=== PATIENT | female | born 1955 | race Caucasian/White ===

== ENCOUNTER 2019-10-22 08:52 | Outpatient (CLI) | payer OTHER, SELFPAY | END 2019-10-22 08:53 | disposition home or self-care (01) | LOC: ANHCOVIDDT 08:53 | PROVIDERS: PCP Family Medicine; Visit Provider Internal Medicine Gastroenterology | DX: Z01.818 Encounter for other preprocedural examination (principal); Z11.59 Encounter for screening for other viral diseases; Z53.8 Procedure and treatment not carried out for other reasons | CPT/HCPCS: 87635; U0003 ==

== ENCOUNTER 2019-11-13 00:21 | Outpatient (CLI) | payer OTHER, SELFPAY ==
[2019-11-13 18:58] LABS: SARS-CoV-2 RNA PCR Negative
== END 2019-11-13 00:22 | disposition home or self-care (01) ==
LOC: ANHCOVIDDT 00:21
PROVIDERS: PCP Family Medicine; Visit Provider Internal Medicine Gastroenterology
DX: Z01.818 Encounter for other preprocedural examination (principal); Z11.59 Encounter for screening for other viral diseases
CPT/HCPCS: 87635; C9803; U0003

== ENCOUNTER 2019-11-15 00:21 | Day surgery (SDC) | payer OTHER, SELFPAY ==
[2019-10-22 13:14] VITALS: BMI 21.3
--- NOTE | 2019-11-05 14:05 | PC.NURSE ---
Pt was interviewd 10/22/2019. Pt states no changes to health history. Preop instructions reviewed with patient in regards to day of procedure and covid testing. Pt verbalized understanding.
[2019-11-15 07:30] VITALS: BP 124/94; PULSE 92; RESP 14; TEMP 36.8; O2SAT 99
[2019-11-15 07:32] VITALS: BMI 21.1
--- NOTE | 2019-11-15 07:32 | WPDANESEPPF ---
Anes - Initial Pre Proc Eval Procedure: Operation Date: 11/15/19 08:00 Proposed Procedures p Esophagogastroduodenoscopy - Woody Nickerson DO Date/Time: 11/15/19 07:32 Surgeon: Woody Nickerson DO Pre Op Diagnosis: PUD Patient Data Age: 64 Gender: F Height: 5 ft 6 in Weight: 60 kg Last Vital Signs Temp 98.2 F 11/15/19 07:30 Pulse 92 11/15/19 07:30 Resp 14 11/15/19 07:30 BP 124/94 H 11/15/19 07:30 Pulse Ox 99 11/15/19 07:30 Allergies Allergy/AdvReac Type Severity Reaction Status Date / Time streptomycin Allergy Intermediate Swelling Verified 11/15/19 07:28 Sulfa (Sulfonamide Allergy Intermediate Swelling Verified 11/15/19 07:28 Antibiotics) Home Medications Medication Instructions Recorded Confirmed Type bupropion HCl 300 mg PO DAILY 05/15/19 11/15/19 History gabapentin 600 mg PO DAILY 05/15/19 11/15/19 History nicotine 21 mg TRANSDERMAL Q12-24H 05/15/19 11/15/19 History omeprazole 40 mg PO DAILY 05/15/19 11/15/19 History trazodone 300 mg PO DAILY 05/15/19 11/15/19 History gh-aue-pmxdj-calcium carb-K1 1 tablet PO DAILY 10/22/19 11/15/19 History [Women's 50 Plus Multivitamin] Patient hx anesthesia problems: none Family hx anesthesia problems: none PMFSH Past Medical History Medical History (Updated 11/15/19 @ 07:26 by Woody Nickerson DO) Anxiety and depression AVM (arteriovenous malformation) of duodenum, acquired Ginny esophagitis Chronic hepatitis C Esophageal stricture Hx of adenomatous colonic polyps Osteoporosis PUD (peptic ulcer disease) Vitamin B12 deficiency Vitamin D deficiency Surgical History Surgical History (Updated 05/17/19 @ 08:27 by Fouzia Hunter APRN) Hx of appendectomy Hx of colonoscopy Hx of esophagogastroduodenoscopy Hx of lumpectomy Family History Family History (Updated 05/17/19 @ 08:28 by Fouzia Hunter APRN) Mother Acute myocardial infarction Hypertension Father TIA (transient ischemic attack) Diabetes mellitus Parkinson disease Skin cancer Sibling Hypertension Diabetes mellitus Multiple myeloma Other Lung cancer Social History Social History (Updated 05/17/19 @ 08:29 by Fouzia Hunter, [employer]) Smoking packs per day: 0.5 Smoking cigarettes per day: 10.0 Smoking status: Current every day smoker Additional smoking assessment comments: currently using nicotine patch Alcohol intake: current Drinks per week: 15 Substance use: former Gender identity (if verbalized by the patient): Female Anes - Eval Final PreProcedure Day of Procedure 11/15/19 07:32 Patient weight: normal Heart: regular rate and rhythm Lungs: clear to auscultation Airway: Mallampati scale class II Neurological: alert and oriented Last oral intake: >/= 8 hours ASA classification: III Emergent: no Anesthetic plan: proceed Anesthesia type and monitoring: general GIVS and standard monitoring Informed Consent: The patient's anesthetic plan and its attendant risks and benefits were discussed with the patient/family/POA. Questions were solicited and answers provided to the satisfaction of the patient/family/POA.
[2019-11-15] MEDS: LACTATED RINGERS 1,000 ML 150 ML IV CONT (07:39)
--- NOTE | 2019-11-15 07:59 | PM.IMHP ---
H&P: HPI History of Present Illness Chief complaint: PUD Narrative: Reason for visit EGD. This very pleasant lady seen in consultation request the primary. The patient was examined. Impression: GERD with history of esophageal stricture. Patient is here for follow-up endoscopy to assess the need for further dilation. History of Ginny esophagitis. AVM of the duodenum. History of adenomatous colon polyps. History of chronic hepatitis-C. Recommendation: EGD. History: This very pleasant lady's being evaluated for history reflux disease and dysphagia. The patient does have a esophageal stricture. She was previously dilated. She was also noted to have a small AVM in the duodenum. She is here for follow-up endoscopy to assess the need for further dilation and for recurrent AVMs. She is presently doing well. She is having no significant breakthrough symptoms and no significant dysphagia. Lower gastrointestinal symptoms or tonight. The patient has been encouraged to quit smoking. General: very pleasant patient in no acute distress. HEENT: Head was normocephalic sclerae is clear mouth without masses neck was supple. Heart: Rate rhythm regular without S3 or S4. Lungs: CTA.Decreased breath sounds bilaterally. Abdomen: Soft with no guarding or rigidity. Bowel sounds were active. Neurologic: Cranial nerves 2 through 12 intact. No focal defects. No clonus. Musculoskeletal system: Revealed no joint tenderness or swelling no muscle atrophy. Extremities: Reveal no significant edema. Skin: Warm and dry with normal turgor. Mental status: intact. Patient is alert and oriented. Review of Systems Review of Systems: All systems reviewed & are unremarkable except as noted in HPI and below PMFSH Past Medical History Medical History (Updated 11/15/19 @ 07:26 by Woody Nickerson DO) Anxiety and depression AVM (arteriovenous malformation) of duodenum, acquired Ginny esophagitis Chronic hepatitis C Esophageal stricture Hx of adenomatous colonic polyps Osteoporosis PUD (peptic ulcer disease) Vitamin B12 deficiency Vitamin D deficiency Surgical History Surgical History (Updated 05/17/19 @ 08:27 by Fouzia Hunter APRN) Hx of appendectomy Hx of colonoscopy Hx of esophagogastroduodenoscopy Hx of lumpectomy Family History Family History (Updated 05/17/19 @ 08:28 by Fouzia Hunter APRN) Mother Acute myocardial infarction Hypertension Father TIA (transient ischemic attack) Diabetes mellitus Parkinson disease Skin cancer Sibling Hypertension Diabetes mellitus Multiple myeloma Other Lung cancer Social History Social History (Updated 05/17/19 @ 08:29 by Fouzia Hunter, GINI) Smoking packs per day: 0.5 Smoking cigarettes per day: 10.0 Smoking status: Current every day smoker Additional smoking assessment comments: currently using nicotine patch Alcohol intake: current Drinks per week: 15 Substance use: former Gender identity (if verbalized by the patient): Female Meds Home Medications and Allergies Home Medications Medication Instructions Recorded Confirmed Type bupropion HCl 300 mg PO DAILY 05/15/19 11/15/19 History gabapentin 600 mg PO DAILY 05/15/19 11/15/19 History nicotine 21 mg TRANSDERMAL Q12-24H 05/15/19 11/15/19 History omeprazole 40 mg PO DAILY 05/15/19 11/15/19 History trazodone 300 mg PO DAILY 05/15/19 11/15/19 History hy-vxf-wqkvd-calcium carb-K1 1 tablet PO DAILY 10/22/19 11/15/19 History [Women's 50 Plus Multivitamin] Allergies Allergy/AdvReac Type Severity Reaction Status Date / Time streptomycin Allergy Intermediate Swelling Verified 11/15/19 07:28 Sulfa (Sulfonamide Allergy Intermediate Swelling Verified 11/15/19 07:28 Antibiotics) Vital Signs Vital Signs - 24 hr 11/15/19 07:30 Temperature 36.8 C Pulse Rate 92 Respiratory Rate 14 Blood Pressure 124/94 H Pulse Oximetry 99
[2019-11-15 08:21] VITALS: BP 129/83; PULSE 73; RESP 20; O2SAT 98
[2019-11-15 08:31] VITALS: BP 139/84; PULSE 74; RESP 27; O2SAT 100
[2019-11-15 08:41] VITALS: BP 149/90; PULSE 72; RESP 26; O2SAT 100
== END 2019-11-15 09:24 | disposition home or self-care (01) ==
PROVIDERS: PCP Family Medicine; Visit Provider Internal Medicine Gastroenterology
PROC: 0DJ08ZZ Inspection of Upper Intestinal Tract, Via Natural or Artificial Opening Endoscopic (ICD-10-PCS; CPT 43235; principal; 2019-11-15 08:00)
DX: Z09 Encounter for follow-up examination after completed treatment for conditions other than malignant neoplasm (principal); Z87.19 Personal history of other diseases of the digestive system; K21.9 Gastro-esophageal reflux disease without esophagitis; K44.9 Diaphragmatic hernia without obstruction or gangrene; K31.819 Angiodysplasia of stomach and duodenum without bleeding; Z87.11 Personal history of peptic ulcer disease; F32.9 Major depressive disorder, single episode, unspecified; B18.2 Chronic viral hepatitis C; F17.210 Nicotine dependence, cigarettes, uncomplicated; F41.9 Anxiety disorder, unspecified; Z88.2 Allergy status to sulfonamides; Z88.8 Allergy status to other drugs, medicaments and biological substances
CPT/HCPCS: 43235; J2704; J7120

== ENCOUNTER 2019-12-24 07:13 | Outpatient (CLI) | payer OTHER, SELFPAY ==
--- NOTE | ~2019-12-24 | MM_ITS ---
EXAMINATION: MM screening [facility] BI w l[facility] HISTORY: Screening mammogram TECHNIQUE: Craniocaudal and mediolateral oblique 3-D tomosynthesis images were obtained and synthetic 2-D images were generated. CAD analysis was submitted and interpreted. COMPARISON: Comparison to multiple prior studies sequentially, with oldest reviewed study dated 11/2013. BREAST PARENCHYMAL COMPOSITION: There are scattered areas of fibroglandular density. FINDINGS: There is no evidence of suspicious mass, calcification, or architectural distortion to sugg est malignancy in either breast. There has been no suspicious interval change. IMPRESSION: 1. No mammographic evidence of malignancy. 2. Recommend routine screening mammography in one year. BI-RADS Category 1: Negative Reviewed, dictated and finalized at location A.
[2019-12-24 08:00] LABS: Basophils Absolute Auto 0.1 K/mm3 (0.0-0.1); Basophils Percent Auto 1.1 % (0.2-1.2); Eosinophils Absolute Auto 0.3 K/mm3 (0-0.3); Eosinophils Percent Auto 3.9 % (0-4.4); Hematocrit 35.1 % (37.0-47.0); Hemoglobin 12.2 g/dL (12.0-15.0); Immature Granulocyte Absolute 0.04 K/mm3 (0.00-0.031); Immature Granulocyte Percent A 0.6 % (0-0.5); Lymphocytes Absolute Auto 1.98 K/mm3 (0.9-3.2); Lymphocytes Percent Auto 30.5 % (18.3-44.2); Mean Corpuscular HGB Conc 34.8 g/dl (32-36); Mean Corpuscular Hemoglobin 34.2 pg (26-34); Mean Corpuscular Volume 98.3 fl (80-100); Mean Platelet Volume 8.2 fl (7.4-10.4); Monocytes Absolute Auto 0.8 K/mm3 (0.1-0.6); Monocytes Percent Auto 12.9 % (2.6-8.5); Neutrophils Absolute Auto 3.3 K/mm3 (1.3-6.7); Platelet Count Result 305 k/mm3 (150-375); Red Blood Count 3.57 M/mm3 (4.2-5.4); Red Cell Distribution Width 11.6 % (11.5-14.5); White Blood Count 6.5 K/mm3 (4.5-10.0)
[2019-12-24 08:10] LABS: Alanine Aminotransferase 91 U/L (4-35); Albumin Level 4.7 g/dL (3.5-5.1); Alkaline Phosphatase 85 U/L (38-126); Aspartate Amino Transferase 132 U/L (14-36); Bilirubin,Total 0.4 mg/dL (0.2-1.3); Blood Urea Nitrogen 13 mg/dL (7-17); Calcium 9.1 mg/dL (8.4-10.2); Carbon Dioxide 21 mmol/L (22-30); Chloride 95 mmol/L (98-107); Cholesterol 196 mg/dL (0-200); Estimated Glomerular Filt Rate > 60; Glucose 106 mg/dL (65-105); HDL Direct 92 mg/dL; Magnesium 1.8 mg/dL (1.6-2.3); Phosphorus 4.1 mg/dL (2.5-4.5); Potassium 4.4 mmol/L (3.4-5.0); Sodium 126 mmol/L (137-145); Triglycerides 71 mg/dL (<150)
[2019-12-24 08:11] LABS: Prothrombin Time 12.6 Seconds (11.1-14.7)
[2019-12-24 08:21] LABS: LDL Cholesterol Direct 80 mg/dL
[2019-12-27 11:15] LABS: Mitochondrial (M2) Ab (IgG) <=20.0 U (<=20.0)
[2019-12-27 19:07] LABS: Alpha-1-Antitrypsin, QN 124 mg/dL (83-199)
== END 2019-12-24 07:14 | disposition home or self-care (01) ==
PROVIDERS: PCP Family Medicine; Referring Provider Internal Medicine Gastroenterology; Visit Provider Family Medicine
DX: Z12.31 Encounter for screening mammogram for malignant neoplasm of breast (principal); B18.2 Chronic viral hepatitis C
CPT/HCPCS: 36415; 77063; 77067; 80048; 80061; 80076; 82103; 82104; 83520; 83735; 84100; 84439; 84443; 85025; 85610; 87522

== ENCOUNTER 2020-01-17 07:11 | Outpatient (CLI) | payer OTHER, SELFPAY ==
--- NOTE | ~2020-01-17 | CT_ITS ---
EXAMINATION:CT lung screening DATE: 01/17/2020 08:30 INDICATION: Personal history of tobacco dependence. Current smoker with 40 pack year history. TECHNIQUE: Computed tomography (CT) of the chest was performed without intravenous contrast. Automate d exposure control and iterative reconstruction technique were employed. The dose-length product (DLP ) was 66.53 mGy-cm. COMPARISON: Chest CT 09/06/2018 FINDINGS: There is a stable 2 mm nodule in right lung apex. A calcified left lung nodule is consisten t with old granulomatous disease. There is a 3 mm nodule in right lower lobe without change. No pleur al effusion. The heart size is normal. There are coronary artery calcifications. No pericardial effu jerod. There is a 9 mm nodule in left thyroid lobe, likely not clinically significant. There is severe cervical and thoracic spondylosis. There is a chronic compression fracture of L1. IMPRESSION: 1. Lung-RADS category 2: Benign appearance or behavior. Continue annual screening with noncontrast lo w-dose chest CT in 12 months. Reviewed, dictated and finalized at location B. IMPRESSION: 1. Lung-RADS category 2: Benign appearance or behavior. Continue annual screeni ng with noncontrast low-dose chest CT in 12 months.
[2020-01-17 08:06] LABS: Anion Gap 9 mmol/L (8-16); Blood Urea Nitrogen 14 mg/dL (7-17); Carbon Dioxide 25 mmol/L (22-30); Chloride 95 mmol/L (98-107); Estimated Glomerular Filt Rate > 60; Glucose 99 mg/dL (65-105); Sodium 129 mmol/L (137-145)
== END 2020-01-17 07:12 | disposition home or self-care (01) ==
PROVIDERS: PCP Family Medicine; Visit Provider Internal Medicine Gastroenterology
DX: B18.2 Chronic viral hepatitis C (principal)
CPT/HCPCS: 36415; 80048; G0297

== ENCOUNTER 2020-02-07 11:01 | Outpatient (CLI) | payer OTHER, SELFPAY ==
[2020-02-10 05:05] LABS: Amphetamines negative; Barbiturates negative; Benzodiazepines negative; Cocaine Metabolites negative; Marijuana Metabolites negative; PCP negative
== END 2020-02-07 11:02 | disposition home or self-care (01) ==
LOC: ANHLAB 11:04
PROVIDERS: PCP Family Medicine; Visit Provider Physician Assistant Medical
DX: B18.2 Chronic viral hepatitis C (principal)
CPT/HCPCS: 80307

== ENCOUNTER → 2020-08-04 02:33 | Outpatient (CLI) | payer OTHER, SELFPAY ==
[2020-08-04 18:21] LABS: SARS-CoV-2 RNA PCR Negative
== END ==
PROVIDERS: PCP Family Medicine; Visit Provider Internal Medicine Gastroenterology
DX: Z01.812 Encounter for preprocedural laboratory examination (principal); Z20.822 Contact with and (suspected) exposure to COVID-19
CPT/HCPCS: C9803; U0003; U0005

== ENCOUNTER 2020-08-07 01:30 | Day surgery (SDC) | payer OTHER, SELFPAY ==
[2020-07-23 15:10] VITALS: BMI 20.9
[2020-08-07 06:48] VITALS: BP 136/81; PULSE 87; RESP 20; TEMP 36; O2SAT 100
[2020-08-07] MEDS: LACTATED RINGERS 1,000 ML 150 ML IV CONT (06:58)
--- NOTE | 2020-08-07 07:32 | WPDANESEPPF ---
Anes - Initial Pre Proc Eval Procedure: Operation Date: 08/07/20 08:00 Proposed Procedures p Esophagogastroduodenoscopy - Woody Nickerson DO Date/Time: 08/07/20 07:32 Surgeon: Woody Nickerson DO Pre Op Diagnosis: Peptic Ulcer Disease Patient Data Age: 65 Gender: F Height: 5 ft 6 in Weight: 60 kg Last Vital Signs Temp 96.8 F L 08/07/20 06:48 Pulse 87 08/07/20 06:48 Resp 20 08/07/20 06:48 BP 136/81 08/07/20 06:48 Pulse Ox 100 08/07/20 06:48 Allergies Allergy/AdvReac Type Severity Reaction Status Date / Time streptomycin Allergy Intermediate Swelling Verified 08/07/20 06:46 Sulfa (Sulfonamide Allergy Intermediate Swelling Verified 08/07/20 06:46 Antibiotics) Home Medications Medication Instructions Recorded Confirmed Type bupropion HCl 300 mg PO DAILY 05/15/19 07/23/20 History gabapentin 600 mg PO DAILY 05/15/19 07/23/20 History nicotine 21 mg TRANSDERMAL Q12-24H 05/15/19 07/23/20 History omeprazole 40 mg PO DAILY 05/15/19 07/23/20 History trazodone 300 mg PO DAILY 05/15/19 07/23/20 History ba-zwt-zghab-calcium carb-K1 1 tablet PO DAILY 10/22/19 07/23/20 History [Women's 50 Plus Multivitamin] albuterol sulfate 90 mcg/actuation 1 puff INHALATION Q4H PRN 03/20/20 07/23/20 History aerosol inhaler fluticasone propionate 50 1 spray INTRANASAL DAILY 03/20/20 07/23/20 History mcg/actuation nasal spray,suspension tramadol 50 mg tablet 50 mg PO Q6H PRN 03/20/20 07/23/20 History Patient hx anesthesia problems: none Family hx anesthesia problems: none PMFSH Past Medical History Medical History Anxiety and depression AVM (arteriovenous malformation) of duodenum, acquired Ginny esophagitis Chronic hepatitis C Esophageal stricture Hx of adenomatous colonic polyps Osteoporosis PUD (peptic ulcer disease) Vitamin B12 deficiency Vitamin D deficiency Surgical History Surgical History Hx of appendectomy Hx of colonoscopy Hx of esophagogastroduodenoscopy Hx of lumpectomy Family History Family History Mother Acute myocardial infarction Hypertension Father TIA (transient ischemic attack) Diabetes mellitus Parkinson disease Skin cancer Sibling Hypertension Diabetes mellitus Multiple myeloma Other Lung cancer Social History Social History Smoking packs per day: 0.5 Smoking cigarettes per day: 10.0 Years smoked: 40 Smoking pack-years: 20.00 Smoking status: Current every day smoker Tobacco type: cigarettes Additional smoking assessment comments: currently using nicotine patch Alcohol intake: current Drinks per week: 10 Alcohol use details: beer Substance use: never Substance use type: does not use Living arrangements: alone Gender identity (if verbalized by the patient): Female Spiritual care concerns: No Anes - Eval Final PreProcedure Day of Procedure 08/07/20 07:32 Patient weight: normal Heart: regular rate and rhythm Lungs: clear to auscultation Airway: Mallampati scale class II Neurological: alert and oriented Last oral intake: >/= 8 hours ASA classification: III Emergent: no Anesthetic plan: proceed Anesthesia type and monitoring: general GIVS and standard monitoring Informed Consent: The patient's anesthetic plan and its attendant risks and benefits were discussed with the patient/family/POA. Questions were solicited and answers provided to the satisfaction of the patient/family/POA.
--- NOTE | 2020-08-07 08:05 | WPDGICN ---
GI Consult Note Consult date/time: 08/07/20 08:05 Reason for visit is EGD. This very pleasant lady seen in consultation request the primary physician. Impression: Here very pleasant lady with history of GERD. She has documented duodenal AVM. She is here for endoscopic evaluation to assess need for further therapeutic intervention. Recommendation: EGD. History: This very pleasant lady has a history reflux disease, esophageal stricture, Ginny esophagitis and reflux disease. She also has a previous history of duodenal AVM. She is here for endoscopic evaluation to assess the need for further therapeutic intervention. Physical examination: General: very pleasant patient in no acute distress. HEENT: Head was normocephalic sclerae is clear mouth without masses neck was supple. Heart: Rate rhythm regular without S3 or S4. Lungs: CTA. Abdomen: Soft with no guarding or rigidity. Bowel sounds were active. Neurologic: Cranial nerves 2 through 12 intact. No focal defects. No clonus. Musculoskeletal system: Revealed no joint tenderness or swelling no muscle atrophy. Extremities: Reveal no significant edema. Skin: Warm and dry with normal turgor. Mental status: intact. Patient is alert and oriented. Review of Systems Review of Systems: All systems reviewed & are unremarkable except as noted in HPI and below PMFSH Past Medical History Medical History Anxiety and depression AVM (arteriovenous malformation) of duodenum, acquired Ginny esophagitis Chronic hepatitis C Esophageal stricture Hx of adenomatous colonic polyps Osteoporosis PUD (peptic ulcer disease) Vitamin B12 deficiency Vitamin D deficiency Surgical History Surgical History Hx of appendectomy Hx of colonoscopy Hx of esophagogastroduodenoscopy Hx of lumpectomy Family History Family History Mother Acute myocardial infarction Hypertension Father TIA (transient ischemic attack) Diabetes mellitus Parkinson disease Skin cancer Sibling Hypertension Diabetes mellitus Multiple myeloma Other Lung cancer Social History Social History Smoking packs per day: 0.5 Smoking cigarettes per day: 10.0 Years smoked: 40 Smoking pack-years: 20.00 Smoking status: Current every day smoker Tobacco type: cigarettes Additional smoking assessment comments: currently using nicotine patch Alcohol intake: current Drinks per week: 10 Alcohol use details: beer Substance use: never Substance use type: does not use Living arrangements: alone Gender identity (if verbalized by the patient): Female Spiritual care concerns: No Meds Home Medications and Allergies Home Medications Medication Instructions Recorded Confirmed Type bupropion HCl 300 mg PO DAILY 05/15/19 07/23/20 History gabapentin 600 mg PO DAILY 05/15/19 07/23/20 History nicotine 21 mg TRANSDERMAL Q12-24H 05/15/19 07/23/20 History omeprazole 40 mg PO DAILY 05/15/19 07/23/20 History trazodone 300 mg PO DAILY 05/15/19 07/23/20 History jk-qmk-uwmab-calcium carb-K1 1 tablet PO DAILY 10/22/19 07/23/20 History [Women's 50 Plus Multivitamin] albuterol sulfate 90 mcg/actuation 1 puff INHALATION Q4H PRN 03/20/20 07/23/20 History aerosol inhaler fluticasone propionate 50 1 spray INTRANASAL DAILY 03/20/20 07/23/20 History mcg/actuation nasal spray,suspension tramadol 50 mg tablet 50 mg PO Q6H PRN 03/20/20 07/23/20 History Allergies Allergy/AdvReac Type Severity Reaction Status Date / Time streptomycin Allergy Intermediate Swelling Verified 08/07/20 06:46 Sulfa (Sulfonamide Allergy Intermediate Swelling Verified 08/07/20 06:46 Antibiotics) Vital Signs Vital Signs - 24 hr 08/07/20 06:48 Temperature 36.0 C L Pulse Rate 87
[2020-08-07 08:19] VITALS: BP 128/77; PULSE 78; RESP 18; O2SAT 99
[2020-08-07 08:29] VITALS: BP 136/92; PULSE 79; RESP 17; O2SAT 100
[2020-08-07 08:39] VITALS: BP 141/91; PULSE 80; RESP 28; O2SAT 99
== END 2020-08-07 08:45 | disposition home or self-care (01) ==
PROVIDERS: PCP Family Medicine; Visit Provider Internal Medicine Gastroenterology
PROC: 0DJ08ZZ Inspection of Upper Intestinal Tract, Via Natural or Artificial Opening Endoscopic (ICD-10-PCS; CPT 43235; principal; 2020-08-07 08:00)
DX: K21.9 Gastro-esophageal reflux disease without esophagitis (principal); K44.9 Diaphragmatic hernia without obstruction or gangrene; Z87.19 Personal history of other diseases of the digestive system; Z87.11 Personal history of peptic ulcer disease; M81.0 Age-related osteoporosis without current pathological fracture; E55.9 Vitamin D deficiency, unspecified; E53.8 Deficiency of other specified B group vitamins; B18.2 Chronic viral hepatitis C; F41.8 Other specified anxiety disorders; F17.210 Nicotine dependence, cigarettes, uncomplicated
CPT/HCPCS: 43239; 87081; J2001; J2704; J7120

== ENCOUNTER 2020-10-15 13:32 | Emergency (ER) | payer OTHER, SELFPAY ==
--- NOTE | ~2020-10-15 | XR_ITS ---
EXAMINATION: XR hand LT min 3V DATE: 10/15/2020 14:16 INDICATION: Fifth metacarpal pain post fall TECHNIQUE: Posteroanterior, oblique and lateral views of the left hand were obtained. COMPARISON: Left wrist MRI dated 05/21/2015 FINDINGS: Diffuse osteopenia. Old healed fractures of the distal left radius and ulna which remain in near ascencion omic alignment. No acute fracture. Mild polyarticular osteoarthritis at the distal radioulnar, wrist, midcarpal, triscaphe, first carpometacarpal, first metacarpophalangeal and multiple predominantly di stal interphalangeal joints. IMPRESSION: 1. Old healed fractures of the distal left radius and ulna. No acute osseous abnormality. 2. 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 3. Diffuse osteopenia. Reviewed, dictated and finalized at location A. IMPRESSION: 1. Old healed fractures of the distal left radius and ulna. No acute osseous ab normality. 2. 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 3. Diffuse osteopenia.
[2020-10-15 13:57] VITALS: BP 159/100; PULSE 86; RESP 18; TEMP 36.9; O2SAT 100
--- NOTE | 2020-10-15 14:22 | ED.UPPEXIN ---
HPI - Extremity Injury (Upper) General Chief Complaint: Extremity Injury, Upper Stated Complaint: hand injury Time Seen by Provider: 10/15/20 13:55 History of Present Illness HPI narrative: 65 yo female presents to the ED with hand pain. She fell onto outstretched left hand last night. She believes that she jammed her little finger into the ground. She has pain between the MCP and DIP. No wound. No weakness, numbness. She did not hit her head. Related Data Home Medications Medication Instructions Recorded Confirmed bupropion HCl 300 mg PO DAILY 05/15/19 07/23/20 gabapentin 600 mg PO DAILY 05/15/19 07/23/20 nicotine 21 mg TRANSDERMAL Q12-24H 05/15/19 07/23/20 omeprazole 40 mg PO DAILY 05/15/19 07/23/20 trazodone 300 mg PO DAILY 05/15/19 07/23/20 ai-njy-zwlgj-calcium carb-K1 1 tablet PO DAILY 10/22/19 07/23/20 [Women's 50 Plus Multivitamin] albuterol sulfate 90 mcg/actuation 1 puff INHALATION Q4H PRN 03/20/20 07/23/20 aerosol inhaler fluticasone propionate 50 1 spray INTRANASAL DAILY 03/20/20 07/23/20 mcg/actuation nasal spray,suspension tramadol 50 mg tablet 50 mg PO Q6H PRN 03/20/20 07/23/20 Allergies Allergy/AdvReac Type Severity Reaction Status Date / Time streptomycin Allergy Intermediate Swelling Verified 08/07/20 06:46 Sulfa (Sulfonamide Allergy Intermediate Swelling Verified 08/07/20 06:46 Antibiotics) NSAIDS (Non-Steroidal AdvReac Ulcers Verified 10/15/20 14:00 Anti-Inflamma Review of Systems Constitutional: Constitutional: Denies fever(s) ENT: Denies dizziness Cardiovascular: Cardiovascular: Denies chest pain Respiratory: Respiratory: Denies dyspnea Neurologic: Denies dizziness and Denies weakness PMFSH Past Medical History Medical History Anxiety and depression AVM (arteriovenous malformation) of duodenum, acquired Ginny esophagitis Chronic hepatitis C Esophageal stricture Hx of adenomatous colonic polyps Osteoporosis PUD (peptic ulcer disease) Vitamin B12 deficiency Vitamin D deficiency Surgical History Surgical History Hx of appendectomy Hx of colonoscopy Hx of esophagogastroduodenoscopy Hx of lumpectomy Family History Family History Mother Acute myocardial infarction Hypertension Father TIA (transient ischemic attack) Diabetes mellitus Parkinson disease Skin cancer Sibling Hypertension Diabetes mellitus Multiple myeloma Other Lung cancer Social History Social History Smoking packs per day: 0.5 Smoking cigarettes per day: 10.0 Years smoked: 40 Smoking pack-years: 20.00 Smoking status: Current every day smoker Tobacco type: cigarettes Additional smoking assessment comments: currently using nicotine patch Alcohol intake: current Drinks per week: 10 Substance use: never Substance use type: does not use Gender identity (if verbalized by the patient): Female Spiritual care concerns: No Exam Const: General: no acute distress and alert Orientation/consciousness: patient oriented x3 HENMT: Head: normal to inspection Resp: Effort & Inspection: normal respiratory effort Cardio: Other: 2+ left radial pulse. Brisk distal capillary refill. Skin: General skin exam: normal color Wounds: no wounds Neuro: General: patient oriented x3 Speech: normal speech Extrem: Other: swelling over left 5th MCP Course Vital Signs Vital signs: Vital Signs Temperature 36.9 C 10/15/20 13:57 Pulse Rate 86 10/15/20 13:57 Respiratory Rate 18 10/15/20 13:57 Blood Pressure 159/100 H 10/15/20 13:57 Pulse Oximetry 100 10/15/20 13:57 Temperature 36.9 C 10/15/20 13:57 Pulse Rate 86 10/15/20 13:57 Respiratory Rate 18 10/15/20 13:57 Blood Pressure 159/100 H 10/15/20 13:57 Pulse
== END 2020-10-15 14:42 | disposition home or self-care (01) ==
PROVIDERS: Emergency Provider Emergency Medicine; PCP Family Medicine
DX: S63.657A Sprain of metacarpophalangeal joint of left little finger, initial encounter (principal); F17.210 Nicotine dependence, cigarettes, uncomplicated; F41.9 Anxiety disorder, unspecified; F32.9 Major depressive disorder, single episode, unspecified; W19.XXXA Unspecified fall, initial encounter
CPT/HCPCS: 73130; 99283

== ENCOUNTER 2021-01-15 08:06 | Outpatient (CLI) | payer OTHER, SELFPAY ==
[2021-01-15 09:33] LABS: Basophils Absolute Auto 0.1 K/mm3 (0.0-0.1); Basophils Percent Auto 0.7 % (0.2-1.2); Eosinophils Absolute Auto 0.2 K/mm3 (0-0.3); Hematocrit 30.8 % (37.0-47.0); Hemoglobin 10.8 g/dL (12.0-15.0); Immature Granulocyte Absolute 0.04 K/mm3 (0.00-0.031); Immature Granulocyte Percent A 0.5 % (0-0.5); Lymphocytes Absolute Auto 2.23 K/mm3 (0.9-3.2); Lymphocytes Percent Auto 26.1 % (18.3-44.2); Mean Corpuscular HGB Conc 35.1 g/dl (32-36); Mean Corpuscular Hemoglobin 35.2 pg (26-34); Mean Corpuscular Volume 100.3 fl (80-100); Mean Platelet Volume 8.6 fl (7.4-10.4); Monocytes Absolute Auto 0.8 K/mm3 (0.1-0.6); Monocytes Percent Auto 8.8 % (2.6-8.5); Neutrophils Absolute Auto 5.3 K/mm3 (1.3-6.7); Neutrophils Percent Auto 61.9 % (45.5-73.1); Platelet Count Result 331 k/mm3 (150-375); Red Blood Count 3.07 M/mm3 (4.2-5.4); Red Cell Distribution Width 13.3 % (11.5-14.5); White Blood Count 8.6 K/mm3 (4.5-10.0)
[2021-01-15 11:15] LABS: Alanine Aminotransferase 22 U/L (4-35); Albumin Level 4.8 g/dL (3.5-5.1); Alkaline Phosphatase 88 U/L (38-126); Anion Gap 11 mmol/L (8-16); Aspartate Amino Transferase 48 U/L (14-36); Bilirubin,Total 0.5 mg/dL (0.2-1.3); Blood Urea Nitrogen 19 mg/dL (7-17); Calcium 9.7 mg/dL (8.4-10.2); Carbon Dioxide 22 mmol/L (22-30); Chloride 98 mmol/L (98-107); Estimated Glomerular Filt Rate 56; Glucose 106 mg/dL (65-110); Potassium 3.8 mmol/L (3.4-5.0); Sodium 131 mmol/L (137-145)
[2021-01-15 12:21] LABS: Folic Acid 7.1 ng/mL (2.76->20)
[2021-01-15 14:43] LABS: Iron 79 ug/dL (37-170)
[2021-01-15 14:53] LABS: Percent Iron Saturation 25 % (20-50)
[2021-01-19 15:15] LABS: Hepatitis C RNA, Quant PCR <15 IU/mL
== END 2021-01-15 08:07 | disposition home or self-care (01) ==
LOC: ANHLAB 08:19
PROVIDERS: PCP Family Medicine; Visit Provider Family Medicine
DX: D75.89 Other specified diseases of blood and blood-forming organs (principal); E61.1 Iron deficiency; E87.1 Hypo-osmolality and hyponatremia; B18.2 Chronic viral hepatitis C
CPT/HCPCS: 36415; 80048; 80076; 82607; 82728; 82746; 83540; 83550; 85025; 87522

== ENCOUNTER 2021-09-17 07:21 | Outpatient (CLI) | payer OTHER, SELFPAY ==
--- NOTE | ~2021-09-17 | MM_ITS ---
EXAMINATION: MM screening [facility] BI w lul HISTORY: Screening TECHNIQUE: Craniocaudal and mediolateral oblique 3-D tomosynthesis images were obtained and synthetic 2-D images were generated. CAD analysis was submitted and interpreted. COMPARISON: Comparison to multiple prior studies sequentially, with oldest reviewed study dated 04/07. BREAST PARENCHYMAL COMPOSITION: Breast composition is almost entirely fatty FINDINGS: There is no evidence of suspicious mass, calcification, or architectural distortion to sugg est malignancy in either breast. There has been no suspicious interval change. IMPRESSION: 1. No mammographic evidence of malignancy. 2. Recommend routine screening mammography in one year. BI-RADS Category 1: Negative Reviewed, dictated and finalized at location A.
== END 2021-09-17 07:22 | disposition home or self-care (01) ==
LOC: ANHIMG 07:22
PROVIDERS: PCP Family Medicine; Visit Provider Family Medicine
DX: Z12.31 Encounter for screening mammogram for malignant neoplasm of breast (principal)
CPT/HCPCS: 77063; 77067

== ENCOUNTER 2022-07-10 09:55 | Outpatient (CLI) | payer MEDICARE, MEDICAID, SELFPAY ==
--- NOTE | ~2022-07-10 | DEXA_ITS ---
Bone Density Report Name: SHAW BRIZUELA Age: 67 Sex: Female Ethnicity: White Date of : 1955 Indication: postmenopausal; screening for osteoporosis; parental hip fracture; height loss; secondary osteoporosis; Referring Provider: CHIO, BRENNA Mendez Study: Bone densitometry was performed. Exam Date: July 10, 2022 Accession number: [id number] Bone Density: Region BMD T-score Z-score Classification AP Spine(L1-L4) 0.985 -0.6 1.2 Normal Femoral Neck (Left) 0.675 -1.6 0.0 Osteopenia Total Hip (Left) 0.787 -1.3 0.0 Osteopenia Femoral Neck (Right) 0.650 -1.8 -0.3 Osteopenia Total Hip (Right) 0.772 -1.4 -0.2 Osteopenia Total Hip Mean 0.780 -1.4 -0.1 Osteopenia World Health Organization criteria for BMD impression classify patients as: Normal (T-score at or above -1.0), Osteopenia (T-score between -1.0 and -2.5), or Osteoporosis (T-score at or below -2.5). 10-year Fracture Risk(1): Major Osteoporotic Fracture 18% Hip Fracture 2.3% Reported Risk Factors: [place] (), Neck BMD=0.650, BMI=23.7, parental fracture, smoking, secondary osteoporosis (1) FRAX(R) Version 3.08. Fracture probability calculated for an untreated patient. Fracture probability may be lower if the patient has received treatment. Clinical Information Provided by Patient: Parent has had a hip fracture Smokes Has secondary osteoporosis Patient maximum height was 65.5 Menopause Age: 43 No regular weight bearing exercise Drinks caffeinated beverages Onset of menses at age 13 Number of children 0 Impression: The patient has low bone mass, based on the Right Femoral Neck T-score. The patient has an estimated ten-year risk of hip fracture of 2.3% and an estimated ten-year risk of major fracture of 18%, based on the WHO FRAX algorithm. The patient has risk factors, including: parental hip fracture, smoking. Discussion: BONE DENSITY IS LOW AT ONE OR MORE SKELETAL SITES. This patient's lowest T-score is low at one or more skeletal sites. It meets the World Health Organization's (WHO) criteria for ?low bone mass? (T-score between -1.0 and -2.5). The patient's 10-year risk of fracture as calculated by FRAX is less than the threshold where pharmacological therapy is recommended by the National Osteoporosis Foundation (NOF). However, all treatment decisions require clinical judgment and consideration of individual patient factors, including patient preferences, comorbidities, previous drug use, risk factors not captured in the FRAX model (e.g., frailty, falls, vitamin D deficiency, increased bone turnover, interval significant decline in bone density) and possible under or overestimation of fracture risk by FRAX. The patient should follow a healthful lifestyle (good nutrition with adequate calcium and vitamin
== END 2022-07-10 09:56 | disposition home or self-care (01) ==
LOC: ANHIMG 10:02
PROVIDERS: PCP Family Medicine; Visit Provider Family Medicine
DX: Z78.0 Asymptomatic menopausal state (principal); M85.852 Other specified disorders of bone density and structure, left thigh; M85.851 Other specified disorders of bone density and structure, right thigh
CPT/HCPCS: 77080

== ENCOUNTER 2022-08-13 06:51 | Emergency (ER) | payer MEDICARE, MEDICAID, SELFPAY ==
[2022-08-13] VITALS (18 sets, daily range): BP systolic 104–161; BP diastolic 61–115; PULSE 56–83; RESP 18; TEMP 37; O2SAT 95–100
--- NOTE | ~2022-08-13 | XR_ITS ---
EXAMINATION: XR knee LT min 4V DATE: 08/13/2022 08:05 INDICATION: Left knee swelling after surgery. TECHNIQUE: 4 views of left knee were obtained. COMPARISON: None. FINDINGS: There is a total left knee arthroplasty with patellar resurfacing in near-anatomic alignmen t. No fracture. There is gas in the knee joint and soft tissues, consistent with recent surgery. Ante rior skin edwardo are noted. IMPRESSION: 1. Total left knee arthroplasty in near-anatomic alignment. Reviewed, dictated and finalized at location A. SORTER
--- NOTE | ~2022-08-13 | XR_ITS ---
XR chest 2V DATE: 08/13/2022 08:26 INDICATION: Fever. Recent knee surgery TECHNIQUE: AP and lateral views COMPARISON: 01/17/2020 CT lung screening FINDINGS: Normal heart size. Mild aortic unfolding. No hilar or mediastinal enlargement. Moderate bilateral hyperinflation. No pulmonary infiltrate or consolidation, pleural effusion or pulmonary vascular congestion or pneumo thorax. Chronic moderate anterior wedge compression fracture deformity of L1, stable since 01/17/2020. There is multilevel degenerative disc disease of the thoracic spine, particularly severe at T9-10, wi th obliterated intervertebral disc space and surrounding eburnation/spurring. This may be due to juana re degenerative disc disease. Discitis is not excluded. IMPRESSION: No active cardiopulmonary disease Chronic compression fracture of L1 Multilevel degenerative disc disease of the thoracic spine, particularly at T9-T10; T9-10 discitis is not excluded. Reviewed, dictated and finalized at location B. 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
--- NOTE | ~2022-08-13 | XR_ITS ---
EXAMINATION: XR lg joint inject/asp w image DATE: 08/13/2022 09:41 INDICATION: Left knee pain and erythema and swelling after surgery. TECHNIQUE: A time-out was performed to verify the patient's name, date of , and procedure to b e performed. The procedure including the risks, benefits, and alternatives was discussed with the pat ient. Risks discussed included bleeding and infection. The patient understood the risks and agreed to proceed. The skin overlying the left knee joint was prepped and draped in usual sterile fashion. A nesthetic was administered with 1% lidocaine subcutaneously. An 18 G needle was advanced under fluor oscopic guidance into the joint. Fluid was aspirated. The needle was removed and the entry site was c leaned and dressed. There were no immediate complications. Fluoroscopy exposure time was 0.0 minutes . The total number of images was 1. FINDINGS: Real-time fluoroscopy demonstrates a total left knee arthroplasty. IMPRESSION: 1. Fluoroscopy guided left knee joint aspiration yielding 4 mL red fluid. Reviewed, dictated and finalized at location A. [employer] DEPARTMENT
--- NOTE | 2022-08-13 07:04 | PC.NURSE ---
Moderate swelling to left knee that extends down her leg. Warmth and redness surrounding incision, dressing still in place. Pedal pulse palpable and strong. Cap refill >3 seconds. Pt denies numbness or tingling.
[2022-08-13 07:21] LABS: Basophils Absolute Auto 0.1 K/mm3 (0.0-0.1); Basophils Percent Auto 1.1 % (0.2-1.2); Eosinophils Absolute Auto 0.2 K/mm3 (0-0.3); Eosinophils Percent Auto 2.6 % (0-4.4); Hemoglobin 9.6 g/dL (12.0-15.0); Immature Granulocyte Absolute 0.07 K/mm3 (0.00-0.031); Immature Granulocyte Percent A 0.8 % (0-0.5); Lymphocytes Absolute Auto 1.74 K/mm3 (0.9-3.2); Lymphocytes Percent Auto 19.3 % (18.3-44.2); Mean Corpuscular HGB Conc 33.1 g/dl (32-36); Mean Corpuscular Hemoglobin 31.4 pg (26-34); Mean Corpuscular Volume 94.8 fl (80-100); Mean Platelet Volume 8.2 fl (7.4-10.4); Monocytes Absolute Auto 0.8 K/mm3 (0.1-0.6); Monocytes Percent Auto 8.3 % (2.6-8.5); Neutrophils Absolute Auto 6.1 K/mm3 (1.3-6.7); Neutrophils Percent Auto 67.9 % (45.5-73.1); Platelet Count Result 620 k/mm3 (150-375); Red Blood Count 3.06 M/mm3 (4.2-5.4); Red Cell Distribution Width 13.1 % (11.5-14.5)
[2022-08-13 07:32] LABS: Alanine Aminotransferase 16 U/L (6-35); Albumin Level 3.9 g/dL (3.5-5.1); Alkaline Phosphatase 72 U/L (38-126); Anion Gap 7 mmol/L (8-16); Aspartate Amino Transferase 32 U/L (14-36); Bilirubin,Total 0.7 mg/dL (0.2-1.3); Blood Urea Nitrogen 9 mg/dL (7-17); Calcium 9.1 mg/dL (8.4-10.2); Carbon Dioxide 27 mmol/L (22-30); Chloride 98 mmol/L (98-107); Estimated CRCL calculation 76 ml/min; Estimated Glomerular Filt Rate > 60; Glucose 99 mg/dL (65-110); Potassium 3.9 mmol/L (3.4-5.0); Sodium 132 mmol/L (137-145)
--- NOTE | 2022-08-13 07:36 | ED.GENADULT ---
HPI - General Adult General Chief complaint: Extremity Injury, Lower Stated complaint: post op complications Time Seen by Provider: 08/13/22 07:14 History of Present Illness HPI narrative: 67-year-old female presented the emergency department for evaluation of left knee swelling. Patient had a knee replacement on 08/02 at [facility] by Dr. Silas Reinoso. Patient reports she had surgical revision on Tuesday. Patient called her physician today due to increased pain and swelling and she was instructed to present to the emergency department. Related Data Home Medications Medication Instructions Recorded Confirmed bupropion HCl 300 mg 24 hr tablet, 300 mg PO DAILY 05/15/19 08/12/22 extended release gabapentin 300 mg capsule 600 mg PO DAILY 05/15/19 08/12/22 nicotine 21 mg/24 hr daily 21 mg transdermal Q12-24H 05/15/19 08/12/22 transdermal patch omeprazole 40 mg capsule,delayed 40 mg PO DAILY 05/15/19 08/12/22 release trazodone 150 mg tablet 300 mg PO DAILY 05/15/19 08/12/22 yetnyngc-mfz-teqfo ac 400 1 tablet PO DAILY 10/22/19 08/12/22 mcg-calcium carb 500 mg-vit K1 20 mcg tablet (Women's 50 Plus Multivitamin) albuterol sulfate 90 mcg/actuation 1 puff inhalation Q4H PRN 03/20/20 08/12/22 aerosol inhaler Shortness Of Breath fluticasone propionate 50 1 spray intranasal DAILY 03/20/20 08/12/22 mcg/actuation nasal spray,suspension losartan 100 mg tablet 100 mg PO DAILY 09/16/21 08/12/22 metoprolol succinate 50 mg 50 mg PO DAILY 09/16/21 08/12/22 tablet,extended release 24 hr Allergies Allergy/AdvReac Type Severity Reaction Status Date / Time streptomycin Allergy Intermediate Swelling Verified 08/13/22 07:13 Sulfa (Sulfonamide Allergy Intermediate Swelling Verified 08/13/22 07:13 Antibiotics) NSAIDS (Non-Steroidal AdvReac Ulcers Verified 08/13/22 07:13 Anti-Inflamma Review of Systems Review of Systems: CONSTITUTIONAL: Denies fever, chills, or sweats. EYES: Denies visual changes, redness, or discharge. ENT: Denies rhinorrhea, congestion, sore throat, or otalgia. CARDIOVASCULAR: Denies chest pain, palpitations, or edema. RESPIRATORY: Denies cough or dyspnea. GASTROINTESTINAL: Denies abdominal pain, nausea, vomiting, or diarrhea. GENITOURINARY: Denies dysuria or hematuria. SKIN: Denies rash or itching. MUSCULOSKELETAL: See HPI NEUROLOGIC: Denies headache, numbness, or weakness. PMFSH Past Medical History Medical History Anxiety and depression AVM (arteriovenous malformation) of duodenum, acquired Ginny esophagitis Chronic hepatitis C Esophageal stricture Hx of adenomatous colonic polyps Osteoporosis PUD (peptic ulcer disease) Vitamin B12 deficiency Vitamin D deficiency Surgical History Surgical History Hx of appendectomy Hx of colonoscopy Hx of esophagogastroduodenoscopy Hx of lumpectomy Family History Family History Mother Acute myocardial infarction Hypertension Father TIA (transient ischemic attack) Diabetes mellitus Parkinson disease Skin cancer Sibling Hypertension Diabetes mellitus Multiple myeloma Other Lung cancer Social History Social History Smoking packs per day: 0.5 Smoking cigarettes per day: 10.0 Years smoked: 40 Smoking pack-years: 20.00 Smoking status: Current every day smoker Tobacco type: cigarettes Additional smoking assessment comments: currently using nicotine patch Alcohol intake: current Drinks per week: 10 Alcohol use details: beer Substance use: never Substance use type: does not use Living arrangements: alone Gender identity (if verbalized by the patient): Female Spiritual care concerns: No Exam Narrative: APPEARANCE: Well appearing, no pain, no distress, well-nourished. HEAD: normocephalic,
[2022-08-13 08:11] LABS: CRP 3.7 mg/dL (<1.0)
[2022-08-13 08:18] LABS: Erythrocyte Sedimentation Rate > 140 mm/hr (0-20)
--- NOTE | 2022-08-13 08:50 | PC.NURSE ---
Patient off unit to Radiology for L knee aspiration.
[2022-08-13 08:57] LABS: Appearance Urine Clear (Clear); Bilirubin Urine Negative (Negative); Blood Urine Negative (Negative); Color Urine Yellow (Yellow); Glucose Urine UA Negative (Negative); Ketones Urine Trace mg/dL (Negative); Leukocyte Esterase Ur Negative LEU/UL (Negative); Nitrate Urine Negative (Negative); Protein Urine Negative (Negative); Specific Grav Ur 1.018 (1.001-1.035)
--- NOTE | 2022-08-13 09:52 | PM.IMHP ---
H&P: HPI History of Present Illness Date/Time: 08/13/22 09:52 Chief Complaint: The patient returns to the ER today transferred from the [facility]. Patient 2 weeks ago had a left total knee arthroplasty then developed hematoma. Five days ago the patient was taken back to the operating room where evacuation hematoma in washout of the left total knee was done. The patient at no point had any fevers no evidence of infection no drainage but the knee was quite swollen. She was deemed stable for discharge to the [facility] however 4 days later now comes back to the ER complaining of chills. She is afebrile with the knee actually looks better postoperatively after the last washout. She has some bruising and discoloration but no evidence of erythema around the incision line and no drainage. She still has quite a bit of pain with trying to do any range of motion his knee is somewhat swollen and stiff. She denies any symptoms of a UTI otherwise is eating and sleeping well feels well otherwise her main complaint is chills. She denies any fevers in the [facility] or on the way to the hospital today on the vital signs. She is currently on doxycycline 100 mg b.i.d. a knee joint aspiration was ordered this was done in the radiology from the ER today results are pending. Review of Systems Review of Systems: Ten point review of systems negative except chills per the patient. [facility] Past Medical History Medical History Anxiety and depression AVM (arteriovenous malformation) of duodenum, acquired Ginny esophagitis Chronic hepatitis C Esophageal stricture Hx of adenomatous colonic polyps Osteoporosis PUD (peptic ulcer disease) Vitamin B12 deficiency Vitamin D deficiency Surgical History Surgical History Hx of appendectomy Hx of colonoscopy Hx of esophagogastroduodenoscopy Hx of lumpectomy Family History Family History Mother Acute myocardial infarction Hypertension Father TIA (transient ischemic attack) Diabetes mellitus Parkinson disease Skin cancer Sibling Hypertension Diabetes mellitus Multiple myeloma Other Lung cancer Social History Social History Smoking packs per day: 0.5 Smoking cigarettes per day: 10.0 Years smoked: 40 Smoking pack-years: 20.00 Smoking status: Current every day smoker Tobacco type: cigarettes Additional smoking assessment comments: currently using nicotine patch Alcohol intake: current Drinks per week: 10 Alcohol use details: beer Substance use: never Substance use type: does not use Living arrangements: alone Gender identity (if verbalized by the patient): Female Spiritual care concerns: No Meds Home Medications and Allergies Home Medications Medication Instructions Recorded Confirmed Type bupropion HCl 300 mg 24 hr tablet, 300 mg PO DAILY 05/15/19 08/12/22 History extended release gabapentin 300 mg capsule 600 mg PO DAILY 05/15/19 08/12/22 History nicotine 21 mg/24 hr daily 21 mg transdermal Q12-24H 05/15/19 08/12/22 History transdermal patch omeprazole 40 mg capsule,delayed 40 mg PO DAILY 05/15/19 08/12/22 History release trazodone 150 mg tablet 300 mg PO DAILY 05/15/19 08/12/22 History jbgfvxtz-xxj-xckkl ac 400 1 tablet PO DAILY 10/22/19 08/12/22 History mcg-calcium carb 500 mg-vit K1 20 mcg tablet (Women's 50 Plus Multivitamin) albuterol sulfate 90 mcg/actuation 1 puff inhalation Q4H PRN 03/20/20 08/12/22 History aerosol inhaler Shortness Of Breath fluticasone propionate 50 1 spray intranasal DAILY 03/20/20 08/12/22 History mcg/actuation nasal spray,suspension losartan 100 mg tablet 100 mg PO DAILY 09/16/21 08/12/22 History metoprolol succinate 50 mg 50 mg PO DAILY 09/16/21 08/12/22 History tablet,exte
[2022-08-13] MEDS: HYDROmorphone HCL INJ (*CRX) 1 MG/ML SYR 0.5 MG IV PUSH (10:09)
--- NOTE | 2022-08-13 10:21 | PC.NURSE ---
Dressing applied by ANG Avalos to left knee. Maldonado wrap in place.
[2022-08-13 10:34] LABS: Add Urine Microscopic? NO
[2022-08-13 11:01] LABS: Appearance Synovial Fluid Turbid (Clear); Color Synovial Fluid Red (Colorless); Nucleated Cell Synovial Fluid 1014 /uL (0-200); Source Synovial Fluid Synovial fluid
[2022-08-13 11:04] LABS: Lymphocytes Synovial Fluid 7 %; Monocytes Synovial Fluid 3 %; Neutrophils Synovial Fluid 90 % (0-25); RBC Synovial Fluid < 2000 /uL (0-0)
[2022-08-13 11:11] LABS: Crystals Synovial Fluid None Seen (None Seen)
[2022-08-19 20:02] LABS: Glucose Synovial Fluid 35 mg/dL
[2022-08-23 08:42] LABS: Total Protein Synovial Fluid 4.4
== END 2022-08-13 13:28 ==
PROVIDERS: Emergency Provider Emergency Medicine; PCP Family Medicine
DX: M25.562 Pain in left knee (principal); F17.210 Nicotine dependence, cigarettes, uncomplicated; F41.9 Anxiety disorder, unspecified; F32.A Depression, unspecified
CPT/HCPCS: 20610; 36415; 71046; 73564; 77002; 80053; 81003; 82945; 84157; 85025; 85652; 86140; 87040; 87070; 87075; 87205; 89051; 89060; 96374; 99284; J1170

== ENCOUNTER 2022-11-24 07:43 | Outpatient (CLI) | payer MEDICARE, MEDICAID, OTHER, SELFPAY ==
--- NOTE | ~2022-11-24 | MM_ITS ---
EXAMINATION: MM screening ryan BI w lul HISTORY: Screening mammogram TECHNIQUE: Craniocaudal and mediolateral oblique 3-D tomosynthesis images were obtained and synthetic 2-D images were generated. CAD analysis was submitted and interpreted. COMPARISON: September 17, 2021, December 24, 2019, September 28, 2018 bilateral screening mammogram examinations BREAST PARENCHYMAL COMPOSITION: The breasts are almost entirely fatty. FINDINGS: There is no evidence of suspicious mass, calcification, or architectural distortion to sugg est malignancy in either breast. There has been no suspicious interval change. IMPRESSION: 1. No mammographic evidence of malignancy. 2. Recommend routine screening mammography in one year. BI-RADS Category 1: Negative Reviewed, dictated and finalized at location A.
== END 2022-11-24 07:44 | disposition home or self-care (01) ==
PROVIDERS: PCP Family Medicine; Visit Provider Family Medicine
DX: Z12.31 Encounter for screening mammogram for malignant neoplasm of breast (principal)
CPT/HCPCS: 77063; 77067

== ENCOUNTER 2022-12-13 09:54 | Outpatient (CLI) | payer MEDICARE, MEDICAID, SELFPAY ==
[2022-12-13 11:09] LABS: Basophils Absolute Auto 0.1 K/mm3 (0.0-0.1); Basophils Percent Auto 1.2 % (0.2-1.2); Eosinophils Absolute Auto 0.4 K/mm3 (0-0.3); Eosinophils Percent Auto 4.7 % (0-4.4); Hematocrit 37.5 % (37.0-47.0); Hemoglobin 12.3 g/dL (12.0-15.0); Immature Granulocyte Absolute 0.03 K/mm3 (0.00-0.031); Immature Granulocyte Percent A 0.4 % (0-0.5); Lymphocytes Absolute Auto 2.21 K/mm3 (0.9-3.2); Lymphocytes Percent Auto 29.1 % (18.3-44.2); Mean Corpuscular HGB Conc 32.8 g/dl (32-36); Mean Corpuscular Hemoglobin 31.2 pg (26-34); Mean Corpuscular Volume 95.2 fl (80-100); Mean Platelet Volume 8.6 fl (7.4-10.4); Monocytes Absolute Auto 0.8 K/mm3 (0.1-0.6); Monocytes Percent Auto 10.9 % (2.6-8.5); Neutrophils Absolute Auto 4.1 K/mm3 (1.3-6.7); Neutrophils Percent Auto 53.7 % (45.5-73.1); Platelet Count Result 357 k/mm3 (150-375); Red Blood Count 3.94 M/mm3 (4.2-5.4); Red Cell Distribution Width 13.3 % (11.5-14.5); White Blood Count 7.6 K/mm3 (4.5-10.0)
[2022-12-13 11:19] LABS: Alanine Aminotransferase 26 U/L (6-35); Albumin Level 4.7 g/dL (3.5-5.1); Alkaline Phosphatase 101 U/L (38-126); Anion Gap 9 mmol/L (8-16); Aspartate Amino Transferase 52 U/L (14-36); Bilirubin,Total 0.4 mg/dL (0.2-1.3); Blood Urea Nitrogen 15 mg/dL (7-17); Calcium 8.9 mg/dL (8.4-10.2); Carbon Dioxide 24 mmol/L (22-30); Chloride 96 mmol/L (98-107); Estimated Glomerular Filt Rate > 60; Glucose 88 mg/dL (65-110); Sodium 129 mmol/L (137-145)
[2022-12-13 11:45] LABS: Iron 55 ug/dL (37-170)
[2022-12-13 11:54] LABS: Percent Iron Saturation 18 % (20-50)
[2022-12-13 12:25] LABS: Folic Acid 13.1 ng/mL (2.76->20)
== END 2022-12-13 09:55 | disposition home or self-care (01) ==
PROVIDERS: PCP Family Medicine; Visit Provider Family Medicine
DX: I10 Essential (primary) hypertension (principal); E53.8 Deficiency of other specified B group vitamins; D50.9 Iron deficiency anemia, unspecified
CPT/HCPCS: 36415; 80048; 80076; 82607; 82728; 82746; 83540; 83550; 85025

== ENCOUNTER 2023-01-30 07:01 | Emergency (ER) | payer MEDICARE, MEDICAID, SELFPAY ==
--- NOTE | ~2023-01-30 | XR_ITS ---
XR foot RT min 3V DATE: 01/30/2023 07:58 INDICATION: Heavy object fell on patient's right foot. Pain. TECHNIQUE: 4 views COMPARISON: None FINDINGS: There is osteopenia. There is localized swelling over the lateral aspect of the base of the fifth metatarsal bone and subt le virtually nondisplaced fracture of the lateral base of the fifth metatarsal bone. No other fracture is evident. Osteopenia. Mild osteoarthritis at first metatarsophalangeal joint. IMPRESSION: Virtually nondisplaced fracture of the lateral base of the fifth metatarsal bone Reviewed, dictated and finalized at location A. IMPRESSION: Virtually nondisplaced fracture of the lateral base of the fifth me tatarsal bone
[2023-01-30 07:01] VITALS: BP 186/92; PULSE 78; RESP 16; TEMP 36.2; O2SAT 100
--- NOTE | 2023-01-30 07:59 | ED.GENADULT ---
HPI - General Adult General Chief complaint: Extremity Injury, Lower Stated complaint: R foot injury Time Seen by Provider: 01/30/23 07:22 History of Present Illness HPI narrative: Patient is a 67-year-old female who presents ER with pain to the right foot. She was working last night when she had some frozen pork steaks on her foot. She was able to ambulate and took some Tylenol for pain. After waking up this morning she has had increased pain. She can still ambulate. There is bruising to the lateral aspect of the foot. No numbness or tingling. No additional injury. Related Data Home Medications Medication Instructions Recorded Confirmed bupropion HCl 300 mg 24 hr tablet, 300 mg PO DAILY 05/15/19 08/12/22 extended release gabapentin 300 mg capsule 600 mg PO DAILY 05/15/19 08/12/22 nicotine 21 mg/24 hr daily 21 mg transdermal Q12-24H 05/15/19 08/12/22 transdermal patch omeprazole 40 mg capsule,delayed 40 mg PO DAILY 05/15/19 08/12/22 release trazodone 150 mg tablet 300 mg PO DAILY 05/15/19 08/12/22 xnogorik-uph-zmhny ac 400 1 tablet PO DAILY 10/22/19 08/12/22 mcg-calcium carb 500 mg-vit K1 20 mcg tablet (Women's 50 Plus Multivitamin) albuterol sulfate 90 mcg/actuation 1 puff inhalation Q4H PRN 03/20/20 08/12/22 aerosol inhaler Shortness Of Breath fluticasone propionate 50 1 spray intranasal DAILY 03/20/20 08/12/22 mcg/actuation nasal spray,suspension losartan 100 mg tablet 100 mg PO DAILY 09/16/21 08/12/22 metoprolol succinate 50 mg 50 mg PO DAILY 09/16/21 08/12/22 tablet,extended release 24 hr Allergies Allergy/AdvReac Type Severity Reaction Status Date / Time streptomycin Allergy Intermediate Swelling Verified 01/30/23 07:14 Sulfa (Sulfonamide Allergy Intermediate Swelling Verified 01/30/23 07:14 Antibiotics) NSAIDS (Non-Steroidal AdvReac Ulcers Verified 01/30/23 07:14 Anti-Inflamma Review of Systems Musculoskeletal: Musculoskeletal: Denies arthralgias and Denies joint swelling Comments: Foot pain (Right) Neurologic: Denies focal weakness and Denies numbness PMFSH Past Medical History Medical History Anxiety and depression AVM (arteriovenous malformation) of duodenum, acquired Ginny esophagitis Chronic hepatitis C Esophageal stricture Hx of adenomatous colonic polyps Osteoporosis PUD (peptic ulcer disease) Vitamin B12 deficiency Vitamin D deficiency Surgical History Surgical History Hx of appendectomy Hx of colonoscopy Hx of esophagogastroduodenoscopy Hx of lumpectomy Family History Family History Mother Acute myocardial infarction Hypertension Father TIA (transient ischemic attack) Diabetes mellitus Parkinson disease Skin cancer Sibling Hypertension Diabetes mellitus Multiple myeloma Other Lung cancer Social History Social History Smoking packs per day: 0.5 Smoking cigarettes per day: 10.0 Years smoked: 40 Smoking pack-years: 20.00 Smoking status: Current every day smoker Tobacco type: cigarettes Additional smoking assessment comments: currently using nicotine patch Alcohol intake: current Drinks per week: 10 Alcohol use details: beer Substance use: never Substance use type: does not use Living arrangements: alone Gender identity (if verbalized by the patient): Female Spiritual care concerns: No Exam Narrative: GENERAL: Well-appearing, well-nourished, and in no acute distress. HEAD: Normocephalic, atraumatic. HEART: Regular rate and rhythm. Normal peripheral pulses. EXTREMITIES: Focused exam of right foot. On palpation tenderness of the fifth metatarsal right foot with contusion overlying the fourth and fifth metatarsals. Sensation in the right foot intact. Normal pulses. SKIN: Warm,
[2023-01-30 08:20] VITALS: BP 145/93; PULSE 71; RESP 18; O2SAT 100
== END 2023-01-30 09:33 | disposition home or self-care (01) ==
PROVIDERS: Emergency Provider Emergency Medicine; PCP Family Medicine
DX: S92.354A Nondisplaced fracture of fifth metatarsal bone, right foot, initial encounter for closed fracture (principal); F17.210 Nicotine dependence, cigarettes, uncomplicated; W20.8XXA Other cause of strike by thrown, projected or falling object, initial encounter
CPT/HCPCS: 73630; 99284